=== PATIENT | male | born 1955 | race Caucasian/White ===

== ENCOUNTER 2022-10-28 12:13 | Inpatient (IN) | payer BC, OTHER ==
--- OUTSIDE RECORDS SUMMARY | 2022-10-28 12:16 | XMS REPORT | Continuity of Care Document ---
:1955 Author Organization [facility] t Address [address] [place] [id number] Care Team Providers Name Role Phone Unavailable Unavailable Unavailable Problems This patient has no known problems. Allergies, Adverse Reactions, Alerts This patient has no known allergies or adverse reactions. Medications This patient has no known medications. Procedures This patient has no known procedures. Results This patient has no known results.
[2022-10-28] MEDS ORDERED: ONDANSETRON 4 MG/2 ML VIAL ONE (12:32)
[2022-10-28] MEDS ORDERED: MORPHINE 4 MG/ML SYR ONE ×3 (12:32→18:58)
[2022-10-28 13:17] LABS: Potassium 4.2 mEq/L (3.5-5.1)
--- NOTE | 2022-10-28 13:23 | RAD REPORT ---
EXAM DESCRIPTION: RAD - Hip Right 2 View - 10/28/2022 1:06 pm CLINICAL HISTORY: PAIN COMPARISON: No comparisons FINDINGS/IMPRESSION: Mildly displaced right subcapital femoral neck fracture with varus deformity. N o dislocation. No other fractures appreciated.
--- NOTE | 2022-10-28 13:33 | ER ---
Nurse's Notes [facility] Name: Prakash Davis Age: 67 yrs Sex: Male : 1955 Arrival Date: 10/28/2022 Time: 12:13 Bed 7 Private MD: Diagnosis: Displaced fracture of base of neck of right femur-Subcapital Presentation: 10/28 12:16 Chief complaint: EMS states: toned out to pt work for fall from standing - pt c/o pain ld1 to right hip. Denies hitting head - negative LOC. Coronavirus screen: At this time, the client does not indicate any symptoms associated with coronavirus-19. Ebola Screen: No symptoms or risks identified at this time. Initial Sepsis Screen: Does the patient meet any 2 criteria? No. Patient's initial sepsis screen is negative. Does the patient have a suspected source of infection? No. Patient's initial sepsis screen is negative. Risk Assessment: Do you want to hurt yourself or someone else? Patient reports no desire to harm self or others. Onset of symptoms was October 28, 2022. 12:16 Method Of Arrival: EMS: [facility] ld1 12:16 Acuity: CYNDY 3 ld1 Triage Assessment: 12:19 General: Appears in no apparent distress. uncomfortable, Behavior is calm, cooperative, ld1 appropriate for age. Pain: Complains of pain in right leg Pain does not radiate. Pain currently is 10 out of 10 on a pain scale. Quality of pain is described as aching, throbbing. EENT: No signs and/or symptoms were reported regarding the EENT system. Neuro: Level of Consciousness is awake, alert, obeys commands, Oriented to person, place, time, situation. Cardiovascular: Capillary refill < 3 seconds Patient's skin is warm and dry. Rhythm is sinus bradycardia. Respiratory: Airway is patent Respiratory effort is even, unlabored. GI: Abdomen is flat, non-distended. : No signs and/or symptoms were reported regarding the genitourinary system. Derm: No signs and/or symptoms reported regarding the dermatologic system. Musculoskeletal: No signs and/or symptoms reported regarding the musculoskeletal system. Historical: - Allergies: 12:19 No Known Allergies; ld1 - Home Meds: 12:19 clonidine HCl 0.1 mg Oral Tablet, Extended Release 12 hr PRN [Active]; ld1 - PMHx: 12:19 Hypertensive disorder; ld1 - PSHx: 12:19 None; ld1 - Immunization history:: Adult Immunizations up to date. - Social history:: Smoking status: Patient denies any tobacco usage or history of. Patient/guardian denies using alcohol. - Family history:: not pertinent. - Hospitalizations: : No recent hospitalization is reported. Screenin:21 [facility] ED Fall Risk Assessment (Adult) History of falling in the last 3 months, ld1 including since admission No falls in past 3 months (0 pts). Abuse screen: Denies threats or abuse. Denies injuries from another. Nutritional screening: No deficits noted. Tuberculosis screening: No symptoms or risk factors identified. Assessment: 12:21 Reassessment: See triage assessment. ld1 12:52 Reassessment: Patient appears in no apparent distress at this time. No changes from ld1 previously documented assessment. Patient and/or family updated on plan of care and expected duration. Pain level reassessed. C/O pain to right hip. 14:50 Reassessment: Patient appears in no apparent distress at this time. No changes from ld1 previously documented assessment. Patient and/or family updated on plan of care and expected duration. Pain level reassessed. 16:50 Reassessment: Patient appears in no apparent distress at this time. No changes from ld1 previously documented assessment. Patient and/or family updated on plan of care and expected duration. Pain level reassessed. Patient is alert, oriented x 3, equal unlabored respirations, skin warm/dry/pink. 18:32 Reassessment: Mr Davis has had multiple doses of pain medication, morphine \T\ Dilaudid os in the last 7 hrs. Patient c/o pain coming back almost q2h. Patient is A\T\OX4, denies dizziness, Nausea \T\ vomitng. 19:45 General: attempted to call report. nurse not available . lg3 Vital Signs: 12:16 Pulse 52; Resp 18; Temp 98.2(O); Pulse Ox 98% on R/A; Weight 77.11 kg; Height 5 ft. 9 ld1 in. ; Pain 10/10; 12:19 BP 151 / 108; ld1 12:52 BP 142 / 98; Pulse 65; Resp 18; Pulse Ox 97% on R/A; ld1 13:31 BP 134 / 96; Pulse 52; Resp 18; Pulse Ox 100% on R/A; ld1 14:24 Pain 7/10; os 14:31 BP 129 / 93; Pulse 67; Resp 18; Pulse Ox 97% on R/A; ld1 16:50 BP 130 / 89; Pulse 59; Resp 18; Pulse Ox 99% on R/A; ld1 19:36 BP 139 / 88; Pulse 69; Resp 17 S; Pulse Ox 97% on R/A; lg3 12:16 Body Mass Index 25.10 (77.11 kg, 175.26 cm) ld1 12:16 Pain Scale: Adult ld1 14:24 Pain Scale: Adult os ED Course: 12:16 Patient arrived in ED. ld1 12:16 Pola Huynh MD is Attending Physician. rn 12:19 Triage completed. ld1 12:19 Arm band placed on right wrist. ld1 12:21 Patient has correct armband on for positive identification. Placed in gown. Bed in low ld1 position. Call light in reach. Side rails up X2. monitoring and evaluation advisor on. Pulse ox on. NIBP on. Door closed. Noise minimized. Warm blanket given. 12:24 Za Moreno, MACI is Primary Nurse. ld1 12:52 Inserted saline lock: 20 gauge in right forearm, using aseptic technique. Blood ld1 collected. 13:08 XRAY Hip RIGHT 2 view In Process Unspecified. EDMS 13:31 [facility] MD is Hospitalizing Provider. rn 13:46 Hip Right Wo Con In Process Unspecified. EDMS 15:09 Primary Nurse role handed off by Za Moreno, MACI ld1 18:55 Za Moreno, RN is Primary Nurse. ld1 19:18 Primary Nurse role handed off by Za Moreno, MACI em1 21:11 No provider procedures requiring assistance completed. Patient admitted, IV remains in lg3 place. intact, No redness/swelling at site. Administered Medications: 12:51 Drug: morphine IVP or IV 4 mg Route: IVP; Infused Over: 4 mins; Site: right forearm; ld1 12:51 Drug: Ondansetron IVP 4 mg Route: IVP; Site: right forearm; ld1 14:02 Drug: morphine IVP or IV 4 mg Route: IVP; Infused Over: 4 mins; Site: right forearm; os 16:30 Drug: HYDROmorphone IVP 1 mg Route: IVP; Site: right forearm; os Medication: 21:12 VIS not applicable for this client. lg3 Outcome: 13:32 Decision to Hospitalize by Provider. rn 21:11 Admitted to Med/surg accompanied by nurse, via stretcher, room 212, with chart, Report lg3 called to [facility] 21:11 Condition: stable 21:11 Instructed on the need for admit, Demonstrated understanding of instructions. 21:32 Patient left the ED. aa9 Signatures: Dispatcher [facility] EDMS Pola Huynh MD MD rn Martinez, Eric emGraciela Fox RN RN lg3 Za Moreno RN RN ld1 Aurelia Valdez RN RN aa9 Tremaine Lay RN RN os
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
[2022-10-28 13:39] LABS: Absolute Lymphocytes (CBC) 1.6 K/uL (0.7-4.9); Lymphocytes % 32.3 % (15.3-44.8); MCV 92.7 fL (80-100); MPV 9.7 fL (7.6-11.3); RBC Red Blood Cell Count 4.64 M/uL (4.33-5.43)
[2022-10-28 13:40] LABS: Protime INR 1.01
--- NOTE | 2022-10-28 13:51 | RAD REPORT ---
EXAM DESCRIPTION: CT - Hip Right Wo Con - 10/28/2022 1:46 pm CLINICAL HISTORY: hip injury COMPARISON: Hip Right 2 View dated 10/28/2022 FINDINGS: Comminuted, mildly displaced right subcapital femoral neck fracture. The hip is located. N o other fractures appreciated. Incidental findings in the abdomen noted including atherosclerosis, pr ostatomegaly, fat containing right inguinal hernia, and diverticulosis. IMPRESSION: Mildly displaced right subcapital femoral neck fracture.
[2022-10-28] MEDS ORDERED: ACETAMINOPHEN 325 MG TABLET PO PRN (16:11)
[2022-10-28] MEDS ORDERED: ONDANSETRON 4 MG/2 ML VIAL IV PRN (16:16)
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
[2022-10-28] MEDS ORDERED: HYDROMORPHONE HCL 0.5 MG/0.5 ML INJ ONE (16:31)
[2022-10-28 16:54] LABS: Magnesium 1.7 mg/dL (1.6-2.4); Phosphorus 3.4 mg/dL (2.5-4.9)
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
[2022-10-28] MEDS: MORPHINE 4 MG/ML SYR IV PRN ×2 (18:56→21:38)
[2022-10-28] MEDS: DIPHENHYDRAMINE 25 MG TAB/CAP PO SCH (23:12)
[2022-10-29] MEDS: MORPHINE 4 MG/ML SYR IV PRN ×5 (00:25→14:56)
[2022-10-29] MEDS ORDERED: HYDROMORPHONE HCL 0.5 MG/0.5 ML INJ IV ONE (01:36)
[2022-10-29] MEDS ORDERED: HYDRALAZINE HCL 20 MG/ML VIAL IV PRN (05:28)
--- NOTE | 2022-10-29 07:28 | P.PN ---
Date of Service: 10/29/22 Subjective: Feeling alright today; waiting for surgery pain tolerable with medication laying on back states hydralazine makes him feel dizzy headache ROS: 10 point ROS as noted above, otherwise negative Physical Exam: GEN: Alert, oriented, uncomfortable appearing HEENT: Normal conjunctiva, sclera anicteric CV: Regular rate and rhythm, no edema Pulm: Non-labored respirations on room air ABD: Soft, nontender, nondistended MSK: pain of r hip/thigh with movement Neuro: Normal speech, normal affect vitals reviewed Problem List: Displaced fracture of right femoral neck Hypertension History of hep C CKD 3A Displaced fracture of right femoral neck Acute pain\Chronic back pain Noted on imaging Orthopedic surgeon consulted NPO for right hip hemiarthroplasty 10/29 Cardiology consulted; cleared for surgery Pain medication as needed Hypertension Continue home medication once taking PO IV Hydralazine as needed while NPO History of hep C Treated with Harvoni CKD 3A Baseline functions unknown. Continue to monitor renal function VTE: SCD for surgery Code: Full Dispo: Home ~2 days
[2022-10-29] MEDS ORDERED: PNEUMOCOCCAL VACCINE 0.5 ML IMVAC ONE (08:00)
[2022-10-29 08:46] LABS: Absolute Lymphocytes (CBC) 1.4 K/uL (0.7-4.9); Hematocrit 45.1 % (39.6-49.0); Lymphocytes % 23.2 % (15.3-44.8); MCV 92.2 fL (80-100); MPV 9.2 fL (7.6-11.3); RBC Red Blood Cell Count 4.89 M/uL (4.33-5.43)
[2022-10-29 08:58] LABS: Albumin 3.8 g/dL (3.4-5.0); Bilirubin Total 0.5 mg/dL (0.2-1.0); Potassium 4.1 mEq/L (3.5-5.1); Protein, Total 7.7 g/dL (6.4-8.2)
[2022-10-29] MEDS ORDERED: HYDROMORPHONE HCL 1 MG/ML INJ IV ONE (10:40)
[2022-10-29 11:38] LABS: Urine Bacteria None Seen /HPF (<20); Urine Mucus Slight /HPF (None Seen); Urine RBC <5 /HPF (None Seen)
[2022-10-29 11:40] LABS: Specific Gravity 1.024 (1.005-1.030); Urine Bilirubin NEGATIVE (Negative); Urine Blood Negative (Negative); Urine Clarity Clear (Clear); Urine Color Light-Yellow (Yellow); Urine Glucose NEGATIVE (Negative); Urine Protein NEGATIVE (Negative); Urine Urobilinogen Normal (Normal)
[2022-10-29] MEDS ORDERED: HYDROMORPHONE HCL 1 MG/ML INJ IV PRN (13:40)
[2022-10-29] MEDS ORDERED: Ringers Lactate 1,000 ML IV ONE ×2 (15:59→18:11)
[2022-10-29] MEDS ORDERED: SUCCINYLCHOLINE 20 MG/ML (10 ML) IV ONE (16:14)
[2022-10-29] MEDS ORDERED: FENTANYL CITR 100 MCG/2 ML ONE ×2 (16:19→17:25)
[2022-10-29] MEDS ORDERED: propofoL 200 MG/20 ML VIAL IV ONE (16:19)
[2022-10-29] MEDS ORDERED: ROCURONIUM 50 MG/5 ML VIAL IV ONE (16:19)
[2022-10-29] MEDS ORDERED: MIDAZOLAM HCL 2 MG/2 ML INJ ONE (16:19)
[2022-10-29] MEDS ORDERED: CEFAZOLIN SODIUM 2 GM/VIAL ONE (16:37)
[2022-10-29] MEDS ORDERED: TRANEXAMIC ACID 1,000 MG/10 ML VIAL IV ONE ×2 (16:37→17:53)
[2022-10-29] MEDS ORDERED: LABETALOL 20 MG/4ML SYRINGE IV ONE ×2 (18:32→18:45)
[2022-10-29] MEDS: MEPERIDINE HCL 25 MG/ML SYR ONE ×2 (18:34→18:42)
[2022-10-29] MEDS ORDERED: PROMETHAZINE INJ 25 MG/ML AMP ONE (18:43)
[2022-10-29] MEDS: HYDROMORPHONE HCL 1 MG/ML INJ ONE ×4 (19:00→19:22)
[2022-10-29] MEDS ORDERED: ONDANSETRON 4 MG/2 ML VIAL ONE (19:03)
[2022-10-29] MEDS: ASPIRIN 325 MG TAB PO SCH (19:45)
[2022-10-29] MEDS ORDERED: cloNIDine HCL 0.1 MG TAB PO SCH (21:00)
[2022-10-29] MEDS: DIPHENHYDRAMINE 25 MG TAB/CAP PO SCH (21:44)
[2022-10-29] MEDS: HYDROCODONE/APAP 10/325 TAB PO PRN (21:45)
[2022-10-29] MEDS: cloNIDine HCL 0.1 MG TAB PO SCH (21:45)
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
--- NOTE | 2022-10-29 22:52 | RAD REPORT ---
EXAM DESCRIPTION: RAD - Pelvis - 10/29/2022 7:08 pm CLINICAL HISTORY: s/p R hip hemiarthroplasty COMPARISON: PELVIS dated 09/23/2008 TECHNIQUE: Single AP view of the pelvis. FINDINGS: Right total hip arthroplasty hardware in satisfactory alignment. Adjacent postoperative ch anges in the soft tissues. Overlying skin henok. The visualized pelvic ring is intact. No suspiciou s osseous lesions. Moderate left hip joint degenerative changes. Other pelvic joints are unremarkable . IMPRESSION: Expected postoperative changes of right total hip arthroplasty. Components in satisfacto ry alignment.
[2022-10-30] MEDS: ONDANSETRON 4 MG/2 ML VIAL IV PRN ×2 (00:47→04:17)
[2022-10-30] MEDS: CEFAZOLIN 1 GM in NA CHLORIDE 0.9% 50 ML IVPB SCH ×2 (00:48→08:28)
[2022-10-30] MEDS: MORPHINE 2 MG/ML SYR IV PRN ×5 (00:48→22:20)
[2022-10-30] MEDS: HYDROCODONE/APAP 10/325 TAB PO PRN ×2 (02:56→17:16)
[2022-10-30 03:53] LABS: Potassium 4.1 mEq/L (3.5-5.1)
--- NOTE | 2022-10-30 04:03 | OP ---
Surgeon: Manuel Navarro MD Household Coordinator: Johnson Chirinos PA-C. Preoperative Diagnosis: Right femoral neck fracture. Postoperative Diagnosis: Right femoral neck fracture. Procedure: Right hip hemiarthroplasty. Complications: None. Disposition: Recovery room, stable. Procedure In Detail: The patient was taken to the operative suite, placed in supine position, and in duced with anesthesia. Placed in lateral position with right side up. Posterior approach to the hip utilized. Hemostasis was verified. A 45 head was delivered after elevation of external rotators an d tagged for later reattachment. Reaming broach technique for a 12 mm standard stem was appropriate. +6 gave appropriate offset and balance. Range of motion was excellent. Stability was excellent. No shuck noted. A layered closure performed including repair of external rotators through drill hole s in bone. Patient tolerated the procedure well, reversed from anesthesia and should be in the recov charlie room shortly. MADAN/STEVEL Voice ID: [id number] Report ID: [id number]
--- NOTE | 2022-10-30 07:07 | P.PN ---
Date of Service: 10/30/22 Subjective: Feeling slightly better after surgery complains of pain laying down - slightly improved (doesn't feel like pinched nerve anymore) no new / worsening problems ROS: 10 point ROS as noted above, otherwise negative Physical Exam: GEN: Alert, oriented, NAD HEENT: Normal conjunctiva, sclera anicteric CV: Regular rate and rhythm, no edema Pulm: Non-labored respirations on room air ABD: Soft, nontender, nondistended MSK: pain of r hip/thigh with movement Neuro: Normal speech, normal affect vitals reviewed Problem List: Displaced fracture of right femoral neck Hypertension History of hep C CKD 3A Displaced fracture of right femoral neck acute pain\Chronic back pain Noted on imaging Orthopedic surgeon consulted s/p right hip hemiarthroplasty 10/29 Cardiology consulted; cleared for surgery Pain medication as needed Hypertension restart home clonidine now that he is no longer NPO History of hep C Treated with Harvoni CKD 3A Baseline functions unknown Continue to monitor renal function VTE: aspirin per ortho Code: Full Dispo: Home ~1-2 days
[2022-10-30] MEDS: ASPIRIN 325 MG TAB PO SCH ×2 (08:28→22:19)
[2022-10-30] MEDS: cloNIDine HCL 0.1 MG TAB PO SCH ×2 (08:28→21:00)
--- NOTE | 2022-10-30 14:13 | P.PN ---
Subjective Date of Service: 10/30/22 Chief Complaint: Right hip pain s/p right hip hemiarthroplasty h has been up with therapy Review of Systems 10-point ROS is otherwise unremarkable Physical Examination - Vital Signs Temperature: 98.2 F Blood Pressure: 180/119 Pulse: 94 Respirations: 16 Pulse Ox (%): 95 - Physical Exam Musculoskeletal: Other (dreassings c/d/i) Assessment And Plan - Current Problems (Diagnosis) (1) Displaced fracture of right femoral neck Onset Date: ~10/28/22 Current Visit: Yes Status: Acute Plan: we will schedule him for a right hip hemiarthroplasty at 4:30 pm tomorrow. 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 He will need cardiac clearance and to be npo after midnight (2) History of hemiarthroplasty of right hip Current Visit: Yes Status: Acute Plan: may go home with home health pt when safe and stable, follow up in office 2 weeks post op. dvt prophylaxis 28 days, new aquacel dressing prior to discharge Physician Review: Patient Assessed, Agree with Above Assessment and Plan
[2022-10-30] MEDS ORDERED: NA CHLORIDE 0.9% 1,000 ML IV SCH (19:00)
[2022-10-30] MEDS: DIPHENHYDRAMINE 25 MG TAB/CAP PO SCH (22:19)
[2022-10-31 00:04] VITALS: BMI 26.6
--- NOTE | 2022-10-31 00:43 | PN ---
Mr. Davis was seen before his orthopedic surgery by Dr. Navarro. He underwent surgery and has done well postoperatively without any arrhythmia. No evidence of congestive heart failure. Blood pressu re is 166/107. He is on hydralazine. He is on labetalol. He is on clonidine. I agree with his pre sent regimen. We will sign off his case. PANKAJ/RADHA Voice ID: [id number] Report ID: [id number]
[2022-10-31] MEDS: MORPHINE 2 MG/ML SYR IV PRN (06:48)
--- NOTE | 2022-10-31 07:32 | P.PN ---
Date of Service: 10/31/22 Subjective: ROS: 10 point ROS as noted above, otherwise negative Physical Exam: GEN: Alert, oriented, NAD HEENT: Normal conjunctiva, sclera anicteric CV: Regular rate and rhythm, no edema Pulm: Non-labored respirations on room air ABD: Soft, nontender, nondistended MSK: pain of r hip/thigh with movement Neuro: Normal speech, normal affect vitals reviewed Problem List: Displaced fracture of right femoral neck Hypertension History of hep C CKD 3A Displaced fracture of right femoral neck acute pain\Chronic back pain Noted on imaging Orthopedic surgeon consulted s/p right hip hemiarthroplasty 10/29 Cardiology consulted; cleared for surgery Pain medication as needed Hypertension restart home clonidine now that he is no longer NPO History of hep C Treated with Harvoni CKD 3A Baseline functions unknown Continue to monitor renal function VTE: aspirin per ortho Code: Full Dispo: Home ~1-2 days
[2022-10-31 07:36] LABS: Potassium 4.7 mEq/L (3.5-5.1)
[2022-10-31] MEDS: cloNIDine HCL 0.1 MG TAB PO SCH (08:34)
[2022-10-31] MEDS: ASPIRIN 325 MG TAB PO SCH (08:35)
[2022-10-31] MEDS: HYDROCODONE/APAP 10/325 TAB PO PRN (08:37)
[2022-10-31 08:40] VITALS: BP 148/89; TEMP 98.3
[2022-10-31 08:43] VITALS: O2SAT 94
--- NOTE | 2022-10-31 08:55 | P.DS ---
Admission Date: 10/28/22 Discharge Date: 10/31/22 Disposition: ROUTINE DISCHARGE Discharge Condition: GOOD Reason for Admission: Right hip pain Consultations: Cardiology - Dr. Gold Orthopedics - Dr. Hedrick Brief History of Present Illness: 67yo M, PMH: hypertension, chronic back pain, hep C treated with Harvoni Patient presents with complaint of right hip pain status post fall. Patient reported that he tripped and fell on the right side. Patient denies hitting his head or losing consciousness. Patient was able to get up and started experiencing pain with weightbearing. Patient rated pain as 8/10 in severity and described pain as sharp in quality. Patient denies any other signs or symptoms. Symptoms are aggravated by weightbearing and movement and relieved by nothing. Patient decided to present to the hospital due to worsening symptoms. Hospital Course: Problem List: Displaced fracture of right femoral neck Hypertension History of hep C CKD 3A Patient presented with right hip pain after he tripped and fell down on his right side. Hip CT/Xray showed a displaced fracture of the right femoral neck. Orthopedics was consulted. Cardiology was consulted, and Dr. Gold gave clearance for surgery. Dr. Hedrick performed a right hip hemiarthroplasty on 10/29. Patient was given morphine/norco for pain management. He demonstrated improved mobility with physical therapy and reports his pain is much better controlled now. His symptoms are improving post surgery and was deemed stable for discharge. Continue Physical Therapy 325mg Aspirin twice a day for 4 weeks Follow up: PCP 3-5 days Ortho in 2 weeks Physical Exam: GEN: Alert, oriented, NAD HEENT: Normal conjunctiva, sclera anicteric CV: Regular rate and rhythm, no edema Pulm: Non-labored respirations on room air ABD: Soft, nontender, nondistended MSK: pain of r hip/thigh with movement Neuro: Normal speech, normal affect Vital Signs/Physical Exam: Temp Pulse Resp BP Pulse Ox 98.3 F 71 16 148/89 H 94 10/31/22 08:00 10/31/22 08:00 10/31/22 08:00 10/31/22 08:00 10/31/22 08:00 Laboratory Data at Discharge: WBC 5.80 thou/uL (4.3-10.9) 10/29/22 08:10 Hgb 15.1 g/dL (13.6-17.9) 10/29/22 08:10 Hct 45.1 % (39.6-49.0) 10/29/22 08:10 Plt Count 186 thou/uL (152-406) 10/29/22 08:10 PT 11.0 SECONDS (9.5-12.5) 10/29/22 08:10 INR 1.00 10/29/22 08:10 APTT 29.1 SECONDS (24.3-36.9) 10/28/22 12:48 Sodium 137 mEq/L (136-145) 10/31/22 06:15 Potassium 4.7 mEq/L (3.5-5.1) D 10/31/22 06:15 BUN 27 mg/dL (7-18) H 10/31/22 06:15 Creatinine 1.15 mg/dL (0.70-1.30) 10/31/22 06:15 Glucose 149 mg/dL (74-106) H 10/31/22 06:15 Phosphorus 3.4 mg/dL (2.5-4.9) 10/28/22 12:48 Magnesium 1.7 mg/dL (1.6-2.4) 10/28/22 12:48 Total Bilirubin 0.5 mg/dL (0.2-1.0) 10/29/22 08:10 AST 16 U/L (15-37) 10/29/22 08:10 ALT 28 U/L (16-61) 10/29/22 08:10 Alkaline Phosphatase 104 U/L (45-117) 10/29/22 08:10 Home Medications: RX: Diphenhydramine [Benadryl*] 50 mg PO BEDTIME 03/25/13 RX: cloNIDine HCL [Catapres*] 0.2 mg PO BID #60 tab 03/27/13 Hydrocodone 7.5/APAP 325 [[place] 7.5/325 mg] 1 tab PO Q8H PRN 5 Days #15 tab 10/31/22 RX: Aspirin Tab [[place] Aspirin*] 325 mg PO BID 30 Days #60 tab 10/31/22 New Medications: RX: Aspirin Tab [[place] Aspirin*] 325 mg PO BID 30 Days #60 tab Hydrocodone 7.5/APAP 325 [[place] 7.5/325 mg] 1 tab PO Q8H PRN 5 Days #15 tab PRN Reason: Pain Physician Discharge Instructions: Patient presented with right hip pain after he tripped and fell down on his right side. Hip CT/Xray showed a displaced fracture of the right femoral neck. Orthopedics was consulted. Cardiology was consulted, and Dr. Gold gave clearance for surgery. Dr. Hedrick performed a right hip hemiarthroplasty on 10/29. Patient was given morphine/norco for pain management. He demonstrated improved mobility with physical therapy and reports his pain is much better controlled now. His symptoms are improving post surgery and was deemed stable for discharge. Continue Physical Therapy 325mg Aspirin twice a day for 4 weeks Follow up: PCP 3-5 days Ortho in 2 weeks Followup: NONE,NONE [Primary Care Provider] -
== END 2022-10-31 13:30 | disposition home or self-care (01) | DRG 522 ==
LOC: ER 12:13 → ERHOLD 16:09 → 2ND 19:16
PROVIDERS: ADMIT Hospitalist; ATTEND Hospitalist
PROC: 0SRR0JZ Replacement of Right Hip Joint, Femoral Surface with Synthetic Substitute, Open Approach (ICD-10-PCS; principal; 2022-10-29 16:30)
DX: S72.041A Displaced fracture of base of neck of right femur, initial encounter for closed fracture (principal); G89.29 Other chronic pain; M54.9 Dorsalgia, unspecified; I12.9 Hypertensive chronic kidney disease with stage 1 through stage 4 chronic kidney disease, or unspecified chronic kidney disease; N18.31 Chronic kidney disease, stage 3a; S50.311A Abrasion of right elbow, initial encounter; Z79.82 Long term (current) use of aspirin; Z79.899 Other long term (current) drug therapy; Z87.891 Personal history of nicotine dependence; W01.0XXA Fall on same level from slipping, tripping and stumbling without subsequent striking against object, initial encounter; Y93.9 Activity, unspecified; Y92.9 Unspecified place or not applicable
CPT/HCPCS: 36415; 72170; 73700; 80048; 80053; 81001; 83735; 83880; 84100; 85025; 85610; 85730; 88305; 88311; 96374; 96375; 97116; 97161; 97530; 99285; J0360; J0690; J1170; J2175; J2250; J2270; J2405; J2550; J2704; J3010; J7030; J7120